=== PATIENT | female | born 1995 | race Asian ===

== ENCOUNTER 2016-12-01 23:13 | Emergency (ER) | payer OTHER ==
[2016-12-01 23:21] VITALS: BP 115/59
--- NOTE | 2016-12-02 00:26 | ED ---
Laceration/Wound HPI - HPI Summary HPI Summary: 21F presents with laceration of left thumb today on knife. Her immunizations are up to date. She has Full ROM of thumb. She is right handed. bleeding is controlled. She denies any pain. - History of Current Complaint Stated Complaint: LEFT THUMB LAC Time Seen by Provider: 12/01/16 23:40 Pain Intensity: 0 - Allergy/Home Medications Allergies/Adverse Reactions: Allergies Allergy/AdvReac Type Severity Reaction Status Date / Time Penicillins [PCN] Allergy Unknown Verified 12/01/16 23:21 Reaction Details PMH/Surg Hx/FS Hx/Imm Hx Endocrine/Hematology History: Denies: Hx Anticoagulant Therapy Cardiovascular History: Denies: Hx Hypertension Infectious Disease History: No Infectious Disease History: Denies: Traveled Outside the [place] in Last 30 Days - Family History Known Family History: Positive: Cardiac Disease - Social History Alcohol Use: Occasionally Substance Use Type: Reports: None Smoking Status (MU): Never Smoked Tobacco Review of Systems Negative: Fever Negative: Chest Pain Negative: Shortness Of Breath Positive: Other - laceration left thumb All Other Systems Reviewed And Are Negative: Yes Physical Exam Triage Information Reviewed: Yes Vital Signs On Initial Exam: Initial Vitals Temp Pulse Resp BP Pulse Ox 97.9 F 72 16 115/59 96 12/01/16 23:15 12/01/16 23:15 12/01/16 23:15 12/01/16 23:15 12/01/16 23:15 Vital Signs Reviewed: Yes Appearance: Positive: Well-Appearing Skin: Positive: Warm, Dry, Other - 3cm laceration of left thumb near MCP joint Head/Face: Positive: Normal Head/Face Inspection Eyes: Positive: Normal, Conjunctiva Clear Respiratory/Lung Sounds: Positive: Clear to Auscultation, Breath Sounds Present Cardiovascular: Positive: Normal, RRR Musculoskeletal: Positive: Strength/ROM Intact - left thumb, Other - good pulses , capillary refill < 2 secs Procedures - Splinting Location: left thumb Pre-Made Type: metal Splint: finger splint - Laceration/Wound Repair 1 Location: Other - left thumb Description: Linear Anesthesia: Digital, 1.0% Length, Depth and Shape: 3cm Betadine Prep?: Yes Irrigated w/ Saline (ccs): 100 Closure: Single Layer Suture Type: Prolene - 4-0 Number of Sutures: 4 Diagnostics - Vital Signs Vital Signs Temp Pulse Resp BP Pulse Ox 12/01/16 23:55 97.9 F 72 16 115/59 96 12/01/16 23:15 97.9 F 72 16 115/59 96 - Laboratory Lab Statement: Any lab studies that have been ordered have been reviewed, and results considered in the medical decision making process. Laceration Repair Course/Dx - Course Course Of Treatment: 21F presents with left thumb laceration from knife. tetanus up to date. placed 4 sutures in and placed in finger splint due to location. patient understands and agrees with plan - Differential Dx Differental Diagnoses: Abrasion, Avulsion, Laceration - Clinical Impression Provider Diagnoses: Laceration of left thumb Discharge - Discharge Plan Condition: Good Disposition: HOME Patient Education Materials: Care For Your Stitches (ED) Referrals: [facility] [Primary Care Provider] - Additional Instructions: Keep area in splint for next 2 days Keep area clean and dry for 48 hours Do not soak area Take Tylenol or ibuprofen for pain every 6 hours Return to ED or primary for suture removal in 10-14 days Return to ED if develop signs of infection such as fever, spreading redness, or pus formation
== END 2016-12-02 01:10 | disposition home or self-care (01) ==
LOC: ED 23:13
DX: S61.012A Laceration without foreign body of left thumb without damage to nail, initial encounter (principal); W26.0XXA Contact with knife, initial encounter; Y93.9 Activity, unspecified; Y92.9 Unspecified place or not applicable; Y99.9 Unspecified external cause status
CPT/HCPCS: 12002; 99282